=== PATIENT | male | born 1940 | race Caucasian/White ===

== ENCOUNTER 2019-03-03 12:12 | Inpatient (IN) | payer OTHER ==
--- NOTE | 2019-03-03 12:40 | EDPHY ---
H & P Stated Complaint: light headed, diaphoretic Time Seen by Provider: 03/03/19 12:39 - Personal History Current Tetanus Diphtheria and Acellular Pertussis (TDAP): No - Medical/Surgical History Hx Asthma: No Hx Chronic Respiratory Disease: No Hx Diabetes: No Hx Cardiac Disease: No Hx Renal Disease: No Hx Cirrhosis: No Hx Alcoholism: No Hx HIV/AIDS: No Hx Splenectomy or Spleen Trauma: No Other PMH: HTN, shingles - Social History Smoking Status: Never smoked Constitutional: Initial Vital Signs Temperature (C) 36.9 C 03/03/19 12:16 Heart Rate 105 H 03/03/19 12:16 Respiratory Rate 16 03/03/19 12:16 Blood Pressure 142/122 H 03/03/19 12:16 O2 Sat (%) 96 03/03/19 12:16 O2 Delivery Mode Room Air Allergies/Adverse Reactions: Sulfa (Sulfonamide Antibiotics) Allergy (Intermediate, Verified 12/09/10 22:14) Other-Enter Comments Home Medications: Medication Instructions Recorded Aspirin EC [Aspirin EC 81 mg (*)] 81 mg PO DAILY@12 03/03/19 C/E/Zn/Cu/OM3/DHA/EPA/LUT/ZEAX 1 each PO DAILY@12 03/03/19 [Preservision Areds 2 Softgel] Cholecalciferol Vit D3 [Vitamin D3 2,000 units PO DAILY@12 03/03/19 2000 units tab (OTC)] Herbals/Supplements -Info Only 1 ea PO DAILY 03/03/19 amLODIPine BESYLATE [Norvasc 5 mg 5 mg PO DAILY 03/03/19 (*)] Medical Decision Making ED Course/Re-evaluation: CHIEF COMPLAINT: Lightheaded and sweating HISTORY OF PRESENT ILLNESS: The patient is a 78 y/o male with a history of hypertension complaining of feeling lightheaded and sweaty for the last week. Around 4 weeks ago he felt lightheaded and saw his PCP who diagnosed him with indigestion. He was lightheaded at the time but was not sweating. After seeing his PCP he noticed that his heart rate was irregular when he was taking his blood pressure. Earlier this week he noticed that he continued to feel lightheaded and sweaty. As his symptoms have not improved, he decided to present to the emergency department. He denies any recent surgeries or medical procedures. No fever, headache, body aches, chest pain, heart palpitations, shortness of breath, cough , abdominal pain, urinary or bowel complaints, numbness, paresthesias. REVIEW OF SYSTEMS: A comprehensive 10 system review of systems is otherwise negative aside from elements mentioned in the history of present illness and medical decision making. PHYSICAL EXAM: HR, BP, O2 Sat, RR. Temp noted General Appearance: Alert, well hydrated, appropriate, and non-toxic appearing. Head: Atraumatic without scalp tenderness or obvious injury Eyes: Pupils equal, round, reactive to light and accommodation, EOMI, no trauma , no injection. Ears: Clear bilaterally, no perforation, normal landmarks Nose: Atraumatic, no rhinorrhea, clear. Throat: There is no erythema or exudates, no lesions, normal tonsils, mucus membranes moist. Neck: Supple, 2+ carotid upstroke, nontender, no lymphadenopathy. Respiratory: No retractions, no distress, no wheezes, and no accessory muscle use. Lungs are clear to auscultation bilaterally. Cardiovascular: Irregularly irregular rate and rhythm, possible systolic ejection murmur, rubs, or gallops. Bilateral carotid, radial, dorsalis pedis, and posterior tibial pulses intact. Good capillary refill all extremities. Gastrointestinal: Abdomen is soft, nontender, non-distended, no masses, no rebound, no guarding, no peritoneal signs. Musculoskeletal: Normal active ROM of all extremities, atraumatic. Neurological: Alert, appropriate, and interactive. The patient has normal DTRs and non-focal cranial nerves, motor, sensory, and cerebellar exam. Skin: No rashes, good turgor, no nodules on palpation. Past medical history: Hypertension, shingles Past surgical history: Denies any recent surgeries Family history: Denies Social history: Friend at bedside, , retired DIAGNOSTICS/PROCEDURES/CRITICAL CARE TIME: EKG: The 12 lead EKG was interpreted by myself as atrial fibrillation with a rate of 130. See hard copy and/or "tracemaster" electronic copy for interpretation. DIFFERENTIAL DIAGNOSIS: The differential diagnosis for the patient's tachycardia included but was not limited to various causes of sinus tachycardia such as dehydration and medicines , SVT, atrial flutter, atrial fibrillation, pulmonary causes. MEDICAL DECISION MAKING: The patient is a 78 y/o male with a history of hypertension complaining of feeling lightheaded and sweaty for the last week. After seeing his PCP 4 weeks ago, he noticed that his heart rate was irregular when he was taking his blood pressure. Earlier this week he noticed that he continued to feel lightheaded and sweaty. On exam the patient has an irregularly irregular rate and rhythm as well as a systolic ejection murmur. I suspect he went into atrial fibrillation around 2 weeks ago. Due to the unknown onset of symptoms, patient is not a candidate for cardioversion. Labs and EKG ordered; 20mg IV Bolus Diltiazem with a Diltiazem drip, and 80mg SC Lovenox administered. 1231: I interpreted patient's EKG as atrial fibrillation with a rate of 130. Patient will need to be admitted for new-onset atrial fibrillation. 1257: I consulted with the digital circuit designer SALINAS Lang regarding this patient, she agrees to consult on this patient during his admission. 1258: I consulted with the hospitalist service, Dr. Pandey accepts admission of this patient. 1300: Reassessed patient and discussed laboratory and EKG findings. I have also discussed plan for admission, which he is comfortable with. 1335: Reassessed patient, his rate has dropped to the 80's and 90's. He will be transferred to the floor soon. - Data Points Laboratory Results: Laboratory Results 03/03/19 12:50 03/03/19 12:50 03/03/19 03/03/19 03/03/19 12:55 12:50 12:50 WBC RBC Hgb Hct MCV MCH MCHC RDW Plt Count MPV Neut % (Auto) Lymph % (Auto) [place] % (Auto) Eos % (Auto) Baso % (Auto) Nucleat RBC Rel Count Absolute Neuts (auto) Absolute Lymphs (auto) Absolute Monos (auto) Absolute Eos (auto) Absolute Basos (auto) Absolute Nucleated RBC Immature Gran % Immature Gran # PT 14.3 SEC SEC (12.0-15.0) INR 1.16 (0.83-1.16) APTT 28.2 SEC SEC (23.0-38.0) D-Dimer 0.31 ug/mLFEU ug/mLFEU (0.00-0.50) Sodium 141 mEq/L mEq/L (135-145) Potassium 4.0 mEq/L mEq/L (3.5-5.2) Chloride 105 mEq/L mEq/L (97-110) Carbon Dioxide 24 mEq/l mEq/l (22-31) Anion Gap 12 mEq/L mEq/L (6-14) BUN 19 mg/dL mg/dL (7-23) Creatinine 1.3 mg/dL mg/dL (0.7-1.3) Estimated GFR 54 Glucose 121 mg/dL H mg/dL (70-100) Calcium 9.7 mg/dL mg/dL (8.5-10.4) Magnesium 2.1 mg/dL mg/dL (1.6-2.3) POC Troponin I 0.00 ng/mL ng/mL (0.00-0.08) NT-Pro-B Natriuret Pep 1420 pg/mL H pg/mL (0-450) 03/03/19 12:50 WBC 11.67 10^3/uL H 10^3/uL (3.80-9.50) RBC 5.51 10^6/uL 10^6/uL (4.40-6.38) Hgb 17.6 g/dL H g/dL (13.7-17.5) Hct 51.9 % H % (40.0-51.0) MCV 94.2 fL fL (81.5-99.8) MCH 31.9 pg pg (27.9-34.1) MCHC 33.9 g/dL g/dL (32.4-36.7) RDW 13.4 % % (11.5-15.2) Plt Count 255 10^3/uL 10^3/uL (150-400) MPV 9.3 fL fL (8.7-11.7) Neut % (Auto) 79.0 % H % (39.3-74.2) Lymph % (Auto) 9.8 % L % (15.0-45.0) [place] % (Auto) 9.8 % % (4.5-13.0) Eos % (Auto) 0.7 % % (0.6-7.6) Baso % (Auto) 0.4 % % (0.3-1.7) Nucleat RBC Rel Count 0.0 % % (0.0-0.2) Absolute Neuts (auto) 9.22 10^3/uL H 10^3/uL (1.70-6.50) Absolute Lymphs (auto) 1.14 10^3/uL 10^3/uL (1.00-3.00) Absolute Monos (auto) 1.14 10^3/uL H 10^3/uL (0.30-0.80) Absolute Eos (auto) 0.08 10^3/uL 10^3/uL (0.03-0.40) Absolute Basos (auto) 0.05 10^3/uL 10^3/uL (0.02-0.10) Absolute Nucleated RBC 0.00 10^3/uL 10^3/uL (0-0.01) Immature Gran % 0.3 % % (0.0-1.1) Immature Gran # 0.04 10^3/uL 10^3/uL (0.00-0.10) PT INR APTT D-Dimer Sodium Potassium Chloride Carbon Dioxide Anion Gap BUN Creatinine Estimated GFR Glucose Calcium Magnesium POC Troponin I NT-Pro-B Natriuret Pep Medications Given: Discontinued Medications Diltiazem HCl (Cardizem 25 Mg/5 Ml Vial) 20 mg IVP EDNOW ONE Stop: 03/03/19 12:55 Last Admin: 03/03/19 13:07 Dose: 20 mg Point of Care Test Results: Chemistry 03/03/19 12:55 POC Troponin I 0.00 ng/mL ng/mL (0.00-0.08) Departure - Departure Disposition: [facility] Inpatient Acute Clinical Impression: New onset atrial fibrillation Condition: Fair Report Scribed for: Ander Monson Report Scribed by: Leonela Zurita Date of Report: 03/03/19 Time of Report: 13:27
[2019-03-03] MEDS ORDERED: DILTIAZEM 25 MG/5 ML VIAL IVP ONE (12:54)
[2019-03-03] MEDS ORDERED: DILTIAZEM HCL/D5W 125 ML IV ONE (12:54)
[2019-03-03] MEDS ORDERED: ENOXAPARIN 80 MG/0.8 ML SYR SC ONE (12:54)
[2019-03-03 13:01] LABS: PLATELET COUNT 255 10^3/uL (150-400)
[2019-03-03 13:08] LABS: INR 1.16 (0.83-1.16); PROTIME(PATIENT) 14.3 SEC (12.0-15.0)
[2019-03-03] MEDS ORDERED: ONDANSETRON 4 MG/2 ML VIAL IVP PRN (14:26)
[2019-03-03] MEDS ORDERED: ACETAMINOPHEN 325 MG TAB PO PRN (14:26)
[2019-03-03] MEDS ORDERED: ONDANSETRON DISINTEGRATING 4 MG TAB PO PRN (14:26)
--- NOTE | 2019-03-03 14:32 | PDGENHP ---
History and Physical - Chief Complaint light headed - History of Present Illness The patient is a 78 y/o male with a history of hypertension complaining of feeling lightheaded and sweaty for the last week. Around 4 weeks ago he felt lightheaded and saw his PCP who diagnosed him with indigestion. He was lightheaded at the time but was not sweating. After seeing his PCP he noticed that his heart rate was irregular when he was taking his blood pressure. Earlier this week he noticed that he continued to feel lightheaded and sweaty. As his symptoms have not improved, he decided to present to the emergency department. He denies any recent surgeries or medical procedures. No fever, headache, body aches, chest pain, heart palpitations, shortness of breath, cough , abdominal pain, urinary or bowel complaints, numbness, paresthesias. In the ER he is noted to be in AFib and was started on a Cardizem drip and given Loveno Past medical history: Hypertension, shingles Past surgical history: Denies any recent surgeries Family history: Denies Social history: , retired EKG: atrial fibrillation with a rate of 130. History Information - Allergies/Home Medication List Allergies/Adverse Reactions: Sulfa (Sulfonamide Antibiotics) Allergy (Intermediate, Verified 12/09/10 22:14) Other-Enter Comments Home Medications: Aspirin EC [Aspirin EC 81 mg (*)] 81 mg PO DAILY@12 03/03/19 [Last Taken ] C/E/Zn/Cu/OM3/DHA/EPA/LUT/ZEAX [Preservision Areds 2 Softgel] 1 each PO DAILY@ 03/03/19 [Last Taken 03/02/19] Cholecalciferol Vit D3 [Vitamin D3 2000 units tab (OTC)] 2,000 units PO DAILY@ 03/03/19 [Last Taken 03/02/19] Herbals/Supplements -Info Only 1 ea PO DAILY 03/03/19 [Last Taken Unknown] amLODIPine BESYLATE [Norvasc 5 mg (*)] 5 mg PO DAILY 03/03/19 [Last Taken ] I have personally reviewed and updated: medical history, social history - Social History Smoking Status: Never smoked Review of Systems Review of Systems: ROS: 10pt was reviewed & negative except for what was stated in HPI & below Physical Exam Physical Exam: Temp Pulse Resp BP Pulse Ox 36.9 C 76 16 132/92 H 93 03/03/19 12:16 03/03/19 14:23 03/03/19 14:23 03/03/19 14:23 03/03/19 14:23 Constitutional: no apparent distress Eyes: PERRL, EOMI Ears, Nose, Mouth, Throat: moist mucous membranes Cardiovascular: irregularly irregular, No edema Respiratory: no respiratory distress, no rales or rhonchi, clear to auscultation Gastrointestinal: normoactive bowel sounds, soft, non-tender abdomen Skin: warm Neurologic: AAOx3 Psychiatric: interacting appropriately, not anxious, not encephalopathic Lymph, Heme, Immunologic: No petechiae Lab Data & Imaging Review 03/03/19 12:50 03/03/19 12:50 WBC 11.67 10^3/uL (3.80-9.50) H 03/03/19 12:50 RBC 5.51 10^6/uL (4.40-6.38) 03/03/19 12:50 Hgb 17.6 g/dL (13.7-17.5) H 03/03/19 12:50 Hct 51.9 % (40.0-51.0) H 03/03/19 12:50 MCV 94.2 fL (81.5-99.8) 03/03/19 12:50 MCH 31.9 pg (27.9-34.1) 03/03/19 12:50 MCHC 33.9 g/dL (32.4-36.7) 03/03/19 12:50 RDW 13.4 % (11.5-15.2) 03/03/19 12:50 Plt Count 255 10^3/uL (150-400) 03/03/19 12:50 MPV 9.3 fL (8.7-11.7) 03/03/19 12:50 Neut % (Auto) 79.0 % (39.3-74.2) H 03/03/19 12:50 Lymph % (Auto) 9.8 % (15.0-45.0) L 03/03/19 12:50 [place] % (Auto) 9.8 % (4.5-13.0) 03/03/19 12:50 Eos % (Auto) 0.7 % (0.6-7.6) 03/03/19 12:50 Baso % (Auto) 0.4 % (0.3-1.7) 03/03/19 12:50 Nucleat RBC Rel Count 0.0 % (0.0-0.2) 03/03/19 12:50 Absolute Neuts (auto) 9.22 10^3/uL (1.70-6.50) H 03/03/19 12:50 Absolute Lymphs (auto) 1.14 10^3/uL (1.00-3.00) 03/03/19 12:50 Absolute Monos (auto) 1.14 10^3/uL (0.30-0.80) H 03/03/19 12:50 Absolute Eos (auto) 0.08 10^3/uL (0.03-0.40) 03/03/19 12:50 Absolute Basos (auto) 0.05 10^3/uL (0.02-0.10) 03/03/19 12:50 Absolute Nucleated RBC 0.00 10^3/uL (0-0.01) 03/03/19 12:50 Immature Gran % 0.3 % (0.0-1.1) 03/03/19 12:50 Immature Gran # 0.04 10^3/uL (0.00-0.10) 03/03/19 12:50 PT 14.3 SEC (12.0-15.0) 03/03/19 12:50 INR 1.16 (0.83-1.16) 03/03/19 12:50 APTT 28.2 SEC (23.0-38.0) 03/03/19 12:50 D-Dimer 0.31 ug/mLFEU (0.00-0.50) 03/03/19 12:50 Sodium 141 mEq/L (135-145) 03/03/19 12:50 Potassium 4.0 mEq/L (3.5-5.2) 03/03/19 12:50 Chloride 105 mEq/L (97-110) 03/03/19 12:50 Carbon Dioxide 24 mEq/l (22-31) 03/03/19 12:50 Anion Gap 12 mEq/L (6-14) 03/03/19 12:50 BUN 19 mg/dL (7-23) 03/03/19 12:50 Creatinine 1.3 mg/dL (0.7-1.3) 03/03/19 12:50 Estimated GFR 54 03/03/19 12:50 Glucose 121 mg/dL (70-100) H 03/03/19 12:50 Calcium 9.7 mg/dL (8.5-10.4) 03/03/19 12:50 Magnesium 2.1 mg/dL (1.6-2.3) 03/03/19 12:50 POC Troponin I 0.00 ng/mL (0.00-0.08) 03/03/19 12:55 NT-Pro-B Natriuret Pep 1420 pg/mL (0-450) H 03/03/19 12:50 Assessment & Plan Assessment: #New onset atrial fibrillation (Acute) #Hx of HTN Plan: Cardizem drip Lovenox Card consult check risk factors NPO at midnight in case cardioversion is needed
--- NOTE | 2019-03-03 14:57 | ECHO ---
[email or web address] [address] [address] Main: [phone] Echocardiography Examination Transthoracic Name: ZORAN LOPEZ MR#: [id number] Study Date: 03/03/2019 Study Time: 02:09 PM Date of : 1940 Age: 78 year(s) Height: 185.4 cm (73 in.) Weight: 81.65 kg (180 lb.) BSA: 2.06 m2 Gender: Male Examination: Echo Contrast: Image Quality: Adequate Rhythm: Atrial fibrillation Heart Rate: 67 bpm BP: 138 mmHg/88 mmHg Indication: New onset of Atrial Fibrillation Procedure Staff Referring Physician: Concrete Products Machine Operator: Reading Physician: Zoran Anderson MD Requesting Provider: Ordering Physician: Mitch Pandey Indication: New onset of Atrial Fibrillation Measurements Chambers AV/MV Label Value Normal Value Label Value Normal Value LVOT Vmax 1.08 m/s (0.7m/s - 1.1m/s) AR PHT 0.65 s LVOTd 2 cm (1.9cm - 2.1cm) AR PHT 645 ms LVOT PGmax 5 mmHg AR Vmax 3.35 m/s LVDd, 2D 3.9 cm (4.2cm - 5.9cm) AV PGmax 10 mmHg LVDs, 2D 2.6 cm (2.1cm - 4cm) AV PGmean 5 mmHg IVSd, 2D 1.1 cm (0.6cm - 1.1cm) AV Vmax 1.59 m/s LVPWd, 2D 0.9 cm (0.6cm - 1cm) ELINA (Vmax) 2.1 cm2 LVEF, 2D 63 % (54% - 74%) ELINA (VTI) 2.5 cm2 LVOT PGmean 2 mmHg MV E Vmax 1.06 m/s LVOT Vmean 0.7 m/s MV A Vmax 0.44 m/s RVDd, 2D 2.3 cm (1.9cm - 3.8cm) MV E/A 2.41 LA Volume, BP 68 ml (18ml - 58ml) LAESV index, BP 33 ml/m2 Additional Vessels Label Value Normal Value AoRoot, MM 4 cm (2.2cm - 3.7cm) Conclusions Patient: ZORAN LOPEZ Study Date: 03/03/2019 Page 1 of 2 02:09 PM (1) Left ventricular systolic ejection fraction was normal (65%) - normal wall thickness - patient was in atrial fib/flutter over course of this study (2) Normal RV size and function (3) Normal atrial dimensions (4) Grossly normal mitral valve (5) Trileaflet aortic valve with mild sclerosis, but no stenosis (6) Grossly normal tricuspid and pulmonic valves (7) Normal aorta dimensions Findings Left Ventricle: Left ventricle is normal in size. The EF is visually estimated to be 65 %. EF range is estimated at 60 % - 65 %. Left ventricle wall thickness is normal. There are no regional wall motion abnormalities. Unable to assess Diastolic Dysfunction due to atrial fibrillation/a flutter. Right Ventricle: Normal size right ventricle. Right ventricular systolic function is normal. Left Atrium: The left atrium is normal in size. Right Atrium: The right atrium is normal in size. Mitral Valve: Mitral valve appears structurally normal. No significant mitral regurgitation. No mitral valve stenosis. There is minimal mitral calcification. Aortic Valve: Mild aortic regurgitation is present. There is no aortic stenosis. Aortic leaflets exhibit mild calcification. The aortic valve is trileaflet. Tricuspid Valve: Tricuspid valve leaflets are normal in appearance and function. No significant tricuspid regurgitation. Pulmonic Valve: Pulmonic leaflets are normal in appearance and function. No pulmonic valve regurgitation is evident. Aorta: The aorta is normal. The aortic root size in M-mode measures 4.0 cm. Aorta Measurements AoRoot, MM is 4.0 cm. Pericardium: No pericardial effusion. Exam Details Procedure Ordered: Echo Procedure Status: Routine study Image Quality: Adequate Facility Location: Cardiac Echo 1 (No Signature Object) Patient: ZORAN LOPEZ Study Date: 03/03/2019 Page 2 of 2 02:09 PM [id number]
[2019-03-03] MEDS: DILTIAZEM HCL/D5W 125 ML IV SCH ×2 (15:49→22:24)
--- NOTE | 2019-03-03 17:19 | PDCARCONS ---
Cardiology Consult Reason for Consult: New irregular heart rhythm Chief Complaint: Mild drop in function capabilities with the irregular heart rhythm Requesting Physician: Hospitalist team History of Present Illness: Patient is a 78 y/o male with history of HTN, but no HLP, CAD, or DM, who presented to [facility] with complaints of "irregular heart" beat. Mild lightheadedness and diaphoresis had also been noted. was present in the room with the patient today. Patient with annual visit in October (Dr. Kailyn Hdz) and no abnormalities were appreciated at that time - per patient and report. On home blood pressure monitor, there has been "irregular" noted with the last month of blood pressures per patient. No clear awareness of fluttering, palpitations. Outside of the symptoms noted today, the patient only recalls some mild functional decline with activity. The patient is regularly activity with walking upwards of 10,000 steps per day. No chest pains or pressure. No PND or orthopnea. In the ER, ECG with atrial fibrillation and rapid ventricular response was noted (heart rate of 130 bpm). No history of this arrhythmia. 12 point review of systems was otherwise unremarkable History Information - Allergies/Home Medication List Allergies/Adverse Reactions: Sulfa (Sulfonamide Antibiotics) Allergy (Intermediate, Verified 12/09/10 22:14) Other-Enter Comments Home Medications: Aspirin EC [Aspirin EC 81 mg (*)] 81 mg PO DAILY@12 03/03/19 [Last Taken ] C/E/Zn/Cu/OM3/DHA/EPA/LUT/ZEAX [Preservision Areds 2 Softgel] 1 each PO DAILY@ 03/03/19 [Last Taken 03/02/19] Cholecalciferol Vit D3 [Vitamin D3 2000 units tab (OTC)] 2,000 units PO DAILY@ 03/03/19 [Last Taken 03/02/19] Herbals/Supplements -Info Only 1 ea PO DAILY 03/03/19 [Last Taken Unknown] amLODIPine BESYLATE [Norvasc 5 mg (*)] 5 mg PO DAILY 03/03/19 [Last Taken ] I have personally reviewed and updated: family history, medical history, social history, surgical history Past Medical History: - Past Medical History hypertension - Surgical History Reports: no pertinent surgical hx - Family History Positive for: non-pertinent - Social History Smoking Status: Never smoked Alcohol Use: None Drug Use: None Cardiac History - Cardiac History Cardiac Risk Factors: hypertension (>140/90), age > 65, male Timing/Duration: Weeks Severity: mild Severity Scale: 3 Location: central Activities at Onset: activity Modifying Factors: improves with: rest Associated Symptoms: diaphoresis, shortness of breath, weakness Age in Years: 75 or older Sex: Male Congestive Heart Failure History: No Hypertension History: Yes Stroke/TIA/Thromboembolism History: No Vascular Disease History: No Diabetes Mellitus: No [id number] Score: 3 Physical Exam Physical Exam: Temp Pulse Resp BP Pulse Ox 36.3 C 71 19 149/101 H 95 03/03/19 15:30 03/03/19 15:49 03/03/19 15:30 03/03/19 15:30 03/03/19 15:30 Constitutional: no apparent distress, appears nourished, not in pain Eyes: PERRL, EOMI Ears, Nose, Mouth, Throat: moist mucous membranes, hearing normal, ears appear normal Cardiovascular: irregularly irregular, pulses symmetric bilaterally, No JVD, No edema Peripheral Pulses: 2+: dorsalis-pedis (R), dorsalis-pedis (L) Respiratory: no respiratory distress, no rales or rhonchi, clear to auscultation Gastrointestinal: normoactive bowel sounds Skin: warm Musculoskeletal: full muscle strength Neurologic: AAOx3, sensation intact bilaterally, CN II-XII Intact Psychiatric: interacting appropriately, not anxious, not encephalopathic Lab and Imaging 03/03/19 12:50 03/03/19 12:50 WBC 11.67 10^3/uL (3.80-9.50) H 03/03/19 12:50 RBC 5.51 10^6/uL (4.40-6.38) 03/03/19 12:50 Hgb 17.6 g/dL (13.7-17.5) H 03/03/19 12:50 Hct 51.9 % (40.0-51.0) H 03/03/19 12:50 MCV 94.2 fL (81.5-99.8) 03/03/19 12:50 MCH 31.9 pg (27.9-34.1) 03/03/19 12:50 MCHC 33.9 g/dL (32.4-36.7) 03/03/19 12:50 RDW 13.4 % (11.5-15.2) 03/03/19 12:50 Plt Count 255 10^3/uL (150-400) 03/03/19 12:50 MPV 9.3 fL (8.7-11.7) 03/03/19 12:50 Neut % (Auto) 79.0 % (39.3-74.2) H 03/03/19 12:50 Lymph % (Auto) 9.8 % (15.0-45.0) L 03/03/19 12:50 [place] % (Auto) 9.8 % (4.5-13.0) 03/03/19 12:50 Eos % (Auto) 0.7 % (0.6-7.6) 03/03/19 12:50 Baso % (Auto) 0.4 % (0.3-1.7) 03/03/19 12:50 Nucleat RBC Rel Count 0.0 % (0.0-0.2) 03/03/19 12:50 Absolute Neuts (auto) 9.22 10^3/uL (1.70-6.50) H 03/03/19 12:50 Absolute Lymphs (auto) 1.14 10^3/uL (1.00-3.00) 03/03/19 12:50 Absolute Monos (auto) 1.14 10^3/uL (0.30-0.80) H 03/03/19 12:50 Absolute Eos (auto) 0.08 10^3/uL (0.03-0.40) 03/03/19 12:50 Absolute Basos (auto) 0.05 10^3/uL (0.02-0.10) 03/03/19 12:50 Absolute Nucleated RBC 0.00 10^3/uL (0-0.01) 03/03/19 12:50 Immature Gran % 0.3 % (0.0-1.1) 03/03/19 12:50 Immature Gran # 0.04 10^3/uL (0.00-0.10) 03/03/19 12:50 PT 14.3 SEC (12.0-15.0) 03/03/19 12:50 INR 1.16 (0.83-1.16) 03/03/19 12:50 APTT 28.2 SEC (23.0-38.0) 03/03/19 12:50 D-Dimer 0.31 ug/mLFEU (0.00-0.50) 03/03/19 12:50 Sodium 141 mEq/L (135-145) 03/03/19 12:50 Potassium 4.0 mEq/L (3.5-5.2) 03/03/19 12:50 Chloride 105 mEq/L (97-110) 03/03/19 12:50 Carbon Dioxide 24 mEq/l (22-31) 03/03/19 12:50 Anion Gap 12 mEq/L (6-14) 03/03/19 12:50 BUN 19 mg/dL (7-23) 03/03/19 12:50 Creatinine 1.3 mg/dL (0.7-1.3) 03/03/19 12:50 Estimated GFR 54 03/03/19 12:50 Glucose 121 mg/dL (70-100) H 03/03/19 12:50 Calcium 9.7 mg/dL (8.5-10.4) 03/03/19 12:50 Magnesium 2.1 mg/dL (1.6-2.3) 03/03/19 12:50 POC Troponin I 0.00 ng/mL (0.00-0.08) 03/03/19 12:55 NT-Pro-B Natriuret Pep 1420 pg/mL (0-450) H 03/03/19 12:50 Visualized and Interpreted EKG results: Yes EKG additional interpertation: atrial fibrillation with RVR Telemetry: atrial fibrillation with controlled ventricular response Echocardiogram: normal LVEF without anne valve pathology noted A/P Assessment: Patient is a 78 y/o male with history of HTN, but no CAD, HLP, or DM, who presented to [facility] with irregular heart rates and associated fatigue with diaphoresis. In the ER, ECG and telemetry with newly noted atrial fibrillation (and RVR). Lovenox was dosed, and the patient was given bolus of diltiazem with drip started. On the PCU floor, the patient did not appear to have drip running, and heart rates were noted be better controlled, but still atrial fibrillation. Plan: (1) thyroid assessment (2) outpatient formal sleep study (3) Eliquis therapy (5 mg twice per day) - aware that patient was given lovenox in the ER - NPO after mid night for possible DOE with cardioversion tomorrow (patient was in the process of eating a late lunch when he was seen) (4) Would continue antihypertensive therapy, but would consider beta blockers over the oral calcium channel blockers currently taken (5) Decisions on procedures to be determined by the tone cabinet assembler team this weekend - given heart rate control noted, would consider three weeks of Eliquis therapy prior to DOE with possible cardioversion versus DOE tomorrow
[2019-03-03] MEDS ORDERED: ENOXAPARIN 100 MG/ML SYR SC SCH (22:00)
[2019-03-04 04:34] LABS: PLATELET COUNT 224 10^3/uL (150-400)
[2019-03-04] MEDS: DILTIAZEM HCL/D5W 125 ML IV SCH (08:11)
[2019-03-04] MEDS: APIXABAN 5 MG TAB PO SCH ×2 (08:32→22:49)
--- NOTE | 2019-03-04 09:55 | HOSPPROG ---
Hospitalist Progress Note Assessment/Plan: A fib with RVR - new onset. TSH nl. Echo ok. Off dilt gtt overnight, but restarted this am when his HR jumped up with activity when OOB. -start dilt po 30 q6h, wean off drip if able -transition to eliquis per cards recs -discussed with Dr. Reyna, monitor overnight and if a fib persists tomorrow, would consider CV Hypertension - hold amlodipine in favor of dilt as above Full code Dispo - change to inpt for ongoing A fib management with IV diltiazem and possible need for cardioversion. Subjective: Pt feels better. His lightheadedness is gone. He feels better. HOwever, when OOB this am brushing his teeth in [place], HR jumped back up and dilt drip was resumed. Denies chest pressure or SOB. Objective: Vital Signs Temp Pulse Resp BP Pulse Ox 36.8 C 124 H 19 144/100 H 94 03/04/19 07:18 03/04/19 08:11 03/04/19 07:18 03/04/19 07:18 03/04/19 07:18 Laboratory Results 03/04/19 03:54 03/04/19 03:54 03/03/19 03/04/19 03/05/19 05:59 05:59 05:59 Intake Total 790 Balance 790 PT 14.3 SEC (12.0-15.0) 03/03/19 12:50 INR 1.16 (0.83-1.16) 03/03/19 12:50 - Physical Exam Constitutional: no apparent distress Eyes: PERRL Ears, Nose, Mouth, Throat: moist mucous membranes Cardiovascular: irregularly irregular Respiratory: no respiratory distress, clear to auscultation Gastrointestinal: normoactive bowel sounds, soft, non-tender abdomen Skin: warm Musculoskeletal: full muscle strength, other (no peripheral edema) Neurologic: AAOx3 Psychiatric: interacting appropriately ICD10 Worksheet Patient Problems: Problems Problem Status Onset New onset atrial fibrillation Acute
[2019-03-04] MEDS: DILTIAZEM 30 MG TAB PO SCH ×3 (10:10→18:21)
--- NOTE | 2019-03-04 15:55 | ASMTCMCOM ---
CM Note CM Note Notes: Pt admitted for new onset a-fib. Pt had presented to the ED for lightheadedness, fatigue, diaphoresis, and reports of having "irregular heart beats" while taking his BP at home. Pt is listed as living in [place] with his Miladys. Anticipate pt to stabilize and DC home w/family and to followup w/PCP Dr Hdz, an outpatient sleep study, and cardiology. Pt may need Eliquis resources. CM available as needed. Date Signed: 03/04/2019 03:55 PM Electronically Signed By:Daysi Dugan RN
--- NOTE | 2019-03-04 18:18 | PDMN ---
Medical Necessity Medical necessity: [facility] M505 Afib, A-1 day: 78 yo w/ c/o lightheadedness. Eval revealed new onset afib, started on Cardizem gtt, cardio consult. Initially OBS for workup/tx and afib initially resolved during OBS care but next day pt re -developed afib w/ rvr - Cardizem gtt restarted, cardiology to revisit, possible cardioversion. Meets [facility] IP criteria/med nec for afib w/ hemodynamic instability (persistent tachy) w/ required IV infusion of antiarrhythmic med to manage. Hx HTN, shingles. Change to IP status 03/04/19@1004 per MD order.
[2019-03-05] MEDS: DILTIAZEM 30 MG TAB PO SCH ×2 (00:22→07:58)
[2019-03-05] MEDS ORDERED: DILTIAZEM 30 MG TAB PO ONE (08:15)
[2019-03-05] MEDS: DILTIAZEM CD 120 MG CAP PO SCH ×3 (08:23→20:45)
[2019-03-05] MEDS: APIXABAN 5 MG TAB PO SCH ×2 (08:24→20:45)
--- NOTE | 2019-03-05 09:09 | HOSPPROG ---
Hospitalist Progress Note Assessment/Plan: A fib with RVR - new onset. TSH nl. Echo ok. A fib persists, intermittently has poor rate control. Discussed cardioversion with cards, pt wishes to wait one more day to see if he converts. -dilt changed to long acting, increase to BID for better rate control -cont eliquis Hypertension - stop amlodipine in favor of dilt as above Full code Dispo - cont inpt, possible cardioversion in am, NPO at midnight Subjective: Pt feels ok, admits to being a bit anxious, feels this may be contributing to elevated BP. No CP, SOB. No fevers/chills. Objective: Vital Signs Temp Pulse Resp BP Pulse Ox 36.6 C 106 H 12 140/101 H 94 03/05/19 07:20 03/05/19 08:23 03/05/19 07:20 03/05/19 08:23 03/05/19 07:20 03/04/19 03/05/19 03/06/19 05:59 05:59 05:59 Intake Total 400 Balance 400 PT 14.3 SEC (12.0-15.0) 03/03/19 12:50 INR 1.16 (0.83-1.16) 03/03/19 12:50 - Physical Exam Constitutional: no apparent distress Eyes: PERRL Ears, Nose, Mouth, Throat: moist mucous membranes Cardiovascular: irregularly irregular Respiratory: no respiratory distress, clear to auscultation Gastrointestinal: normoactive bowel sounds, soft, non-tender abdomen Skin: warm Musculoskeletal: full muscle strength Neurologic: AAOx3 Psychiatric: interacting appropriately ICD10 Worksheet Patient Problems: Problems Problem Status Onset New onset atrial fibrillation Acute
--- NOTE | 2019-03-05 09:23 | PDCARPN ---
Cardiology Progress Note Chief Complaint: AFIB Assessment/Plan: Assessment: 1. AFIB with RVR 2. HTN Plan: Offered patient DOE + CV today but he wants to wait for 24 hrs more to see if he will convert on his own to try and avoid invasive procedures. This is OK from my standpoint. DOE + CV will be scheduled tomorrow at 1 PM We discussed other options for future including rate control only, ablation, AAD etc. 03/05/19 09:08 Subjective: Feels better but still slightly lightheaded when in bathroom this AM Reviewed/Discussed With: hospitalist, multidisciplinary team Time Spent with Patient: greater than 25 minutes Time Spent with Patient: Greater than 25 minutes spent on this patients care, greater than 50% of time spent counseling, educating, and coordinating care regarding the above mentioned plan. Objective: Vital Signs (8 Hrs) Temp Pulse Resp BP Pulse Ox 03/05/19 08:23 106 H 140/101 H 03/05/19 07:20 36.6 C 95 12 140/101 H 94 03/05/19 04:00 36.7 C 85 16 137/93 H 95 03/05/19 01:31 128/97 H Intake/Output (24 Hrs) 03/03/19 03/04/19 03/05/19 11:59 11:59 11:59 Intake Total 400 Balance 400 Intake: Oral (ml) 400 Other: Intake Quantity Yes Sufficient Number of Voids Toilet 2 Result Diagrams: 03/04/19 03:54 03/04/19 03:54 Telemetry: AF with V rates 100-130 bpm ICD10 Worksheet Patient Problems: Problems Problem Status Onset New onset atrial fibrillation Acute
[2019-03-05] MEDS ORDERED: PNEUMOC 13-VAL CONJ-DIP CRM/PF 0.5 ML SYR (PREVNAR 13) IM ONE (13:03)
[2019-03-06] MEDS: APIXABAN 5 MG TAB PO SCH (09:29)
[2019-03-06] MEDS: DILTIAZEM CD 120 MG CAP PO SCH (09:29)
--- NOTE | 2019-03-06 11:32 | PDGENHP ---
History & Physical Chief Complaint: Atrial fibrillation History of Present Illness: Persistent atrial fibrillation Relevant Physical Exam: General: A&Ox4, no apparent distress. Respiratory: CTA. Cardiac: irregularly irregular, S1, S2 Cardiorespiratory Assessment: Proceed with DOE and DCCV as planned for today
--- NOTE | 2019-03-06 12:30 | PDANEPAE ---
ANE History of Present Illness a-fib s/f DOE/CV ANE Past Medical History - Cardiovascular History Hx Hypertension: Yes - Pulmonary History Hx Oxygen in Use at Home: No Hx Sleep Apnea: No - Endocrine History Hx Diabetes: No - Neurological & Psychiatric Hx Neurological / Psychiatric History Comment: shingles - Chronic Pain History Chronic Pain: No ANE Review of Systems Review of Systems: - Exercise capacity Exercise capacity: >=4 METS ANE Patient History - Allergies Allergies/Adverse Reactions: Sulfa (Sulfonamide Antibiotics) Allergy (Intermediate, Verified 12/09/10 22:14) Other-Enter Comments - Home Medications Home medications: home medication list seen and reviewed Home Medications: Aspirin EC [Aspirin EC 81 mg (*)] 81 mg PO DAILY@03/03/19 [Last Taken ] C/E/Zn/Cu/OM3/DHA/EPA/LUT/ZEAX [Preservision Areds 2 Softgel] 1 each PO DAILY@ 12 03/03/19 [Last Taken 03/02/19] Cholecalciferol Vit D3 [Vitamin D3 2000 units tab (OTC)] 2,000 units PO DAILY@ 12 03/03/19 [Last Taken 03/02/19] Herbals/Supplements -Info Only 1 ea PO DAILY 03/03/19 [Last Taken Unknown] amLODIPine BESYLATE [Norvasc 5 mg (*)] 5 mg PO DAILY 03/03/19 [Last Taken ] - NPO status NPO Status: no food or drink >8 hours - Smoking Hx Smoking Status: Never smoked - Alcohol Use Alcohol Use: None - Family Anes Hx Family Anes Hx: none ANE Labs/Vital Signs - Labs Result Diagrams: 03/04/19 03:54 03/04/19 03:54 - Vital Signs Blood Pressure: 158/115 Heart Rate: 87 Respiratory Rate: 16 O2 Sat (%): 95 Height: 185.42 cm Weight: 97.2 kg ANE Physical Exam - Airway Neck exam: FROM Mallampati Score: Class 2 Mouth exam: normal dental/mouth exam - Pulmonary Pulmonary: no respiratory distress - Cardiovascular Cardiovascular: irregularly irregular - ASA Status ASA Status: II ANE Anesthesia Plan Anesthesia Plan: GA with mask Total IV Anesthesia: Yes
[2019-03-06] MEDS ORDERED: PROPOFOL 200 MG/20 ML VIAL ONE (12:31)
[2019-03-06] MEDS ORDERED: LIDOCAINE 2% 100 MG/5 ML SYR ONE (12:32)
--- NOTE | 2019-03-06 12:49 | PDTEE1 ---
DOE Cardioversion Procedure Procedure: electrical cardioversion, transesophageal echo Indications: atrial fibrillation Consent: signed and in chart Anticoagulation: eliquis Procedural Details: Pads were placed in anterior-posterior position. DOE probe was advanced and standard images obtained. There is no evidence of left atrial or left atrial appendage thrombus. Synchronized cardioversion attempt #1: 200J Results: normal sinus rhythm Conclusions: successful DOE cardioversion Patient Problems: Problems Problem Status Onset New onset atrial fibrillation Acute
[2019-03-06 14:40] VITALS: BP 138/100
--- NOTE | 2019-03-06 17:19 | GDS ---
[f rep st] DISCHARGE SUMMARY DISCHARGE DIAGNOSES: 1. Atrial fibrillation with rapid ventricular response, new onset. 2. Hypertension. CONSULTANTS: Dr. Hamlet Reyna, Cardiology/Electrophysiology. IMAGING STUDIES/PROCEDURES: 1. Transesophageal echo with electrical cardioversion, March 06, 2019, with successful conversion to normal sinus rhythm. 2. Echocardiogram, March 03, 2019, showed normal ejection fraction of 60% to 65% with no wall motion abnormality, mild aortic regurgitation. No pericardial effusion. HISTORY OF DETAILS: Please see history and physical dated March 03, 2019. In brief, the patient is a 78-year-old male with history of hypertension, who presented to the emergency department feeling lig htheaded and diaphoretic. He was found to be in rapid atrial fibrillation, was admitted to the [facility] for further management. HOSPITAL COURSE: The patient was admitted to the cardiac telemetry unit. He received IV diltiazem b olus, followed by diltiazem drip. This did help improve his rate control. However, he still had sym ptoms from atrial fibrillation. He wished to defer cardioversion for his first 2 days of hospitaliza tion, hoping he would convert without an invasive procedure. However, by hospital day 3, he agreed t o proceed with transesophageal echocardiogram and electrical cardioversion, which successfully conver danielle him to normal sinus rhythm. His Norvasc was held in favor of diltiazem. However, the diltiazem was not very effective in managing his blood pressure. Therefore, at discharge, we will stop his Nor vasc and diltiazem and transition him to Coreg for better blood pressure control, as well as rate con trol. In addition, he will continue on Eliquis 5 mg twice daily. DISPOSITION: The patient is discharged home in stable condition. FOLLOWUP: 1. Dr. Ángel Hdz, Primary Care. 2. Dr. Hamlet Reyna, Cardiology/Electrophysiology. MEDICATIONS: Please see [employer] for completed outpatient medication list. Medications on discharge include Eliquis 5 mg p.o. twice daily, #60, no refills; Coreg 3.125 mg p.o. twice daily, #60, no ref ills. This can be uptitrated in the outpatient setting as indicated. I have discontinued his aspiri n as he is starting anticoagulation. Amlodipine is also discontinued in favor of Coreg. /[id number]/MODL
--- NOTE | 2019-03-06 17:22 | ECHO ---
[email or web address] [address] [address] Main: [phone] Echocardiography Examination Transesophageal Name: ZORAN LOPEZ MR#: [id number] Study Date: 03/06/2019 Study Time: 12:45 PM Date of : 1940 Age: 78 year(s) Height: ( ) Weight: ( ) BSA: Gender: Male Examination: DOE Contrast: Image Quality: Excellent Rhythm: Heart Rate: BP: / Indication: Pre Cardioversion, Atrial Fibrillation Procedure Staff Referring Physician: Stepdown Nurse: León Early RDCS Reading Physician: Hamlet Reyna MD Requesting Provider: Ordering Physician: Mitch Pandey Indication: Pre Cardioversion, Atrial Fibrillation Normal LV function. No thrombus in left atrial appendage. Mild mitral regurgitation. Acute complication: None Findings Left Ventricle: The EF is visually estimated to be 65 %. Right Ventricle: The RV function appears grossly normal. Left Atrium Appendage: Good color flow doppler in the left atrial appendage. No thrombus is identified. IAS: An agitated saline study was performed and was negative for intracardiac shunting. Right Atrium: The right atrium is normal in size. Mitral Valve: Mitral valve appears structurally normal. Mild mitral regurgitation. Aortic Valve: Mild aortic regurgitation is present. There is no aortic stenosis. The aortic valve is trileaflet. Tricuspid Valve: Mild tricuspid regurgitation. Pulmonic Valve: Pulmonic leaflets are normal in appearance and function. Aorta: Patient: ZORAN LOPEZ Study Date: 03/06/2019 Page 1 of 2 12:45 PM The aorta is normal. Pericardium: No pericardial effusion. Exam Details Procedure Ordered: DOE Procedure Status: Routine study Image Quality: Excellent Consent: Risks, alternatives of procedure explained to patient, informed consent obtained Probe Insertion: Attending icing coater Facility Location: Cardiac Echo 1 (No Signature Object) Patient: ZORAN LOPEZ Study Date: 03/06/2019 Page 2 of 2 12:45 PM [id number]
--- NOTE | 2019-03-06 17:32 | CPEKG ---
Test Reason : OPEN Blood Pressure : / mmHG Vent. 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
--- NOTE | 2019-03-08 19:49 | POSTANESTH ---
Post Anesthetic Evaluation Cardiovascular Status: Normal, Stable Respiratory Status: Normal, Stable Level of Consciousness/Mental Status: Can Participate in Eval Pain Control: Adequate, Prn Tx Ordered Nausea/Vomiting Control: Adequate, Prn Tx Ordered Complications Possibly Related to Anesthesia: None Noted
--- NOTE | 2019-03-10 14:37 | CPEKG ---
Test Reason : OPEN Blood Pressure : / mmHG Vent. Rate : 130 BPM Atrial Rate : 197 BPM P-R Int : 140 ms QRS Dur : 093 ms QT Int : 321 ms P-R-T Axes : 000 098 -38 degrees QTc Int : 472 ms Atrial fibrillation Right axis deviation Probable anteroseptal infarct, old Confirmed by Ander Monson ([id number]) on 03/10/2019 2:36:50 PM Referred By: PHYSICIAN ED Confirmed By:Ander Monson
== END 2019-03-06 16:55 | disposition home or self-care (01) | DRG 310 ==
LOC: F2W 15:00 → OBSVTOIN 03-04 10:04
PROVIDERS: ADMIT Family Medicine; ATTEND Family Medicine
PROC: 5A2204Z Restoration of Cardiac Rhythm, Single (ICD-10-PCS; principal; 2019-03-06)
PROC: B245ZZ4 Ultrasonography of Left Heart, Transesophageal (ICD-10-PCS; principal; 2019-03-06)
DX: I48.91 Unspecified atrial fibrillation (principal); I10 Essential (primary) hypertension; Z23 Encounter for immunization
CPT/HCPCS: 84484-ER; 96374; 97161-GP; G0009; G0378; J1650; J2001; J2704